=== PATIENT | female | born 1980 | race Caucasian/White ===

== ENCOUNTER 2019-10-31 13:14 | Emergency (ER) | payer SELFPAY ==
[2019-10-31 16:47] LABS: ABSOLUTE BASOPHILS # (AUTO) 0.1 10^3/uL (0.0-0.2); ABSOLUTE EOSINOPHILS # (AUTO) 0.2 10^3/uL (0.0-0.6); ABSOLUTE LYMPHOCYTES (AUTO) 2.3 10^3/uL (0.5-4.7); ABSOLUTE MONOCYTES (AUTO) 0.7 10^3/uL (0.1-1.4); ABSOLUTE NEUT (AUTO) 7.1 10^3/uL (1.7-8.2); BASOPHILS % (AUTO) 0.7 % (0-2); EOSINOPHILS % (AUTO) 1.6 % (0-6); HEMATOCRIT 40.6 % (36.0-47.0); HEMOGLOBIN 13.6 g/dL (12.0-15.5); LYMPHOCYTES % (AUTO) 22.4 % (13-45); MEAN CORPUSCULAR HEMOGLOBIN 28.6 pg (27.0-33.4); MEAN CORPUSCULAR HGB CONC 33.6 g/dL (32.0-36.0); MEAN CORPUSCULAR VOLUME 85 fl (80-97); MONOCYTES % (AUTO) 6.7 % (3-13); PLATELET COUNT 269 10^3/uL (150-450); RED BLOOD COUNT 4.77 10^6/uL (3.72-5.28); SEGMENTED NEUTROPHILS % (AUTO) 68.6 % (42-78); TOTAL CELLS COUNTED % (AUTO) 100 %; WHITE BLOOD COUNT 10.3 10^3/uL (4.0-10.5)
[2019-10-31 16:48] LABS: APPEARANCE,URINE SLIGHTLY-CLOUDY; BILIRUBIN,URINE NEGATIVE (NEGATIVE); COLOR,URINE YELLOW; GLUCOSE, URINE NEGATIVE (NEGATIVE); KETONES,URINE NEGATIVE (NEGATIVE); LEUKOCYTE ESTERASE,URINE NEGATIVE (NEGATIVE); NITRITE,URINE NEGATIVE (NEGATIVE); PROTEIN,URINE 100 mg/dL (NEGATIVE); URINE SPECIFIC GRAVITY 1.029
[2019-10-31] MEDS ORDERED: RINGERS SOLUTION,LACTATED 1,000 ML IV ONE (16:57)
[2019-10-31] MEDS ORDERED: MORPHINE SULFATE 10 MG/ML INJ IV ONE (16:58)
[2019-10-31] MEDS ORDERED: ONDANSETRON HCL INJ/PF 4 MG/2 ML SDV IV ONE (16:58)
--- NOTE | 2019-10-31 16:58 | ER Document Report ---
ED GI/ - General Chief Complaint: Diarrhea Stated Complaint: BACK/ABDOMINAL PAIN, DIARRHEA, NAUSEA Time Seen by Provider: 10/31/19 16:28 Primary Care Provider: ESCOBAR CISNEROS MD [ACTIVE STAFF] - Follow up as needed Mode of Arrival: Ambulatory Information source: Patient Notes: 39-year-old female with no previous medical problems presents to the emergency room complaining of sudden onset of right flank pain that radiated to her right abdomen yesterday afternoon while driving home. Started having diarrhea yesterday afternoon states she is had 4 loose stools since yesterday. Complains of nausea but no vomiting. States she tried taking some Tylenol and a hot bath last night without relief. Describes it as a sharp stabbing pain in her right side. Denies any bad food. No recent antibiotics. No recent travel. No COVID-19 exposure. No previous testing for COVID-19. States has been eating drinking normally since. Denies any urinary symptoms. TRAVEL OUTSIDE OF THE [place] IN LAST 30 DAYS: No - Related Data Allergies/Adverse Reactions: terbutaline [Terbutaline] Allergy (Severe, Verified 10/31/19 15:38) hallucinate,"psycho" ampicillin [Ampicillin] Allergy (Unknown, Verified 10/31/19 15:38) rash duloxetine [From Cymbalta] Allergy (Verified 10/31/19 15:38) haloperidol [From Haldol] Allergy (Verified 10/31/19 15:38) meloxicam [From Mobic] Allergy (Verified 10/31/19 15:38) Past Medical History - General Information source: Patient - Social History Smoking Status: Never Smoker Chew tobacco use (# tins/day): No Frequency of alcohol use: None Drug Abuse: None Family History: Reviewed & Not Pertinent Patient has homicidal ideation: No - Past Medical History Cardiac Medical History: Denies: Hx Coronary Artery Disease, Hx Heart Attack, Hx Hypertension Pulmonary Medical History: Reports: Hx Pneumonia - age 11 Denies: Hx Asthma, Hx Bronchitis, Hx COPD Neurological Medical History: Denies: Hx Cerebrovascular Accident, Hx Seizures Renal/ Medical History: Reports: Hx Kidney Stones GI Medical History: Musculoskeletal Medical History: Denies Hx Arthritis Infectious Medical History: Past Surgical History: Reports: Hx Abdominal Surgery, Hx Cholecystectomy, Hx Gynecologic Surgery, Hx Hysterectomy. Denies: Hx Pacemaker - Immunizations Hx Diphtheria, Pertussis, Tetanus Vaccination: Yes Review of Systems - Review of Systems Constitutional: No symptoms reported Cardiovascular: No symptoms reported Respiratory: No symptoms reported Gastrointestinal: Abdominal pain, Diarrhea, Nausea. denies: Vomiting Genitourinary: Flank pain - Right-sided Musculoskeletal: No symptoms reported Skin: No symptoms reported Neurological/Psychological: No symptoms reported -: Yes All other systems reviewed and negative Physical Exam - Vital signs Vitals: Temp Pulse Resp BP Pulse Ox 98.6 F 90 20 133/81 H 100 10/31/19 15:37 10/31/19 15:37 10/31/19 15:37 10/31/19 15:37 10/31/19 15:37 - General General appearance: Alert In distress: Mild - HEENT Head: Normocephalic, Atraumatic Eyes: Normal Pupils: PERRL - Respiratory Respiratory status: No respiratory distress Chest status: Nontender Breath sounds: Normal Chest palpation: Normal - Cardiovascular Rhythm: Regular Heart sounds: Normal auscultation Murmur: No Friction rub: No Gallop: None auscultated - Abdominal Inspection: Normal Distension: No distension Bowel sounds: Normal Tenderness: Tender - Generalized discomfort on palpation with no guarding or rebound. Organomegaly: No organomegaly - Back Back: Normal, Nontender. No: CVA tenderness - Neurological Neuro grossly intact: Yes Cognition: Normal Orientation: AAOx4 Sparks Coma Scale Eye Opening: Spontaneous Sparks Coma Scale Verbal: Oriented Sparks Coma Scale Motor: Obeys Commands Sparks Coma Scale Total: 15 Speech: Normal Motor strength normal: LUE, RUE, LLE, RLE Sensory: Normal - Skin Skin Temperature: Warm Skin Moisture: Dry Skin Color: Normal Course - Re-evaluation Re-evalutation: 10/31/19 17:30 Patient is currently resting comfortably with decreased pain. She is pain-free on exam. No diarrhea since arrival to the emergency room. All test results were reviewed with patient. Counseled on viral gastroenteritis. Discussed microscopic hematuria that needs to be followed up as outpatient. On-call physician was provided. She was counseled on a clear liquid diet for the next 24 hours. Advance diet as tolerated. Patient was given strict return to the emergency room guidelines. Return for any new or worsening symptoms. All questions were answered. Patient verbalized understanding and agrees with plan of care. 10/31/19 17:44 - Vital Signs Vital signs: Temp Pulse Resp BP Pulse Ox 98.4 F 90 20 133/81 H 100 10/31/19 15:39 10/31/19 15:37 10/31/19 15:37 10/31/19 15:37 10/31/19 15:37 - Laboratory Result Diagrams: 10/31/19 16:21 10/31/19 16:21 Laboratory results interpreted by me: 10/31/19 10/31/19 16:21 16:21 Sodium 136.1 L ALT 38 H Urine Protein 100 H Urine Blood MODERATE H Urine Urobilinogen 2.0 H - Diagnostic Test Radiology reviewed: Reports reviewed Discharge - Discharge Clinical Impression: Flank pain, Abdominal pain of unknown etiology, Microscopic hematuria Diarrhea Qualifiers: Diarrhea type: unspecified type Qualified Code(s): R19.7 - Diarrhea, unspecified Condition: Stable Disposition: HOME, SELF-CARE Instructions: Abdominal Pain ([facility]), Clear Liquid Diet ([facility]), Diarrhea, Nonspecific ([facility]), Flank Pain ([facility]) Additional Instructions: Clear liquid diet for the next 24 hours. Outpatient follow-up with a primary care physician as discussed. Return to the emergency room for any new or worsening symptoms. Referrals: ESCOBAR CISNEROS MD [ACTIVE STAFF] - Follow up as needed
[2019-10-31 17:08] LABS: ALBUMIN 4.5 g/dL (3.5-5.0); ALKALINE PHOSPHATASE 85 U/L (38-126); ANION GAP 12 (5-19); ASPARTATE AMINO TRANSFERASE 31 U/L (14-36); BILIRUBIN,TOTAL 0.6 mg/dL (0.2-1.3); BLOOD UREA NITROGEN 14 mg/dL (7-20); CALCIUM 9.3 mg/dL (8.4-10.2); CARBON DIOXIDE 23 mmol/L (22-30); CHLORIDE 101 mmol/L (98-107); GLUCOSE 101 mg/dL (75-110); POTASSIUM 3.9 mmol/L (3.6-5.0); TOTAL PROTEIN 7.8 g/dL (6.3-8.2)
--- NOTE | 2019-10-31 17:27 | RADIOLOGY REPORT (SQ) ---
EXAM DESCRIPTION: CT ABD/PELVIS NO ORAL OR IV IMAGES COMPLETED DATE/TIME: 10/31/2019 5:09 pm REASON FOR STUDY: flank pain COMPARISON: None. TECHNIQUE: CT scan of the abdomen and pelvis performed without intravenous or oral contrast. Images reviewed with lung, soft tissue, and bone windows. Reconstructed coronal and sagittal MPR images revi ewed. All images stored on PACS. All CT scanners at this facility use dose modulation, iterative reconstruction, and/or weight based d osing when appropriate to reduce radiation dose to as low as reasonably achievable (ALARA). [facility]: Dose Right [facility]: CareDose [facility]: Dose Right [facility]: Teradose 4D [facility]: [employer] RADIATION DOSE: mGy. LIMITATIONS: None. FINDINGS: LOWER CHEST: No significant findings. No nodules or infiltrates. NON-CONTRASTED LIVER, SPLEEN, ADRENALS: Evaluation limited by lack of IV contrast. No identified sign ificant masses. PANCREAS: No masses. No peripancreatic inflammatory changes. GALLBLADDER: Surgically absent. RIGHT KIDNEY AND URETER: No suspicious masses. Assessment limited by lack of IV contrast. No signif icant calcifications. No hydronephrosis or hydroureter. LEFT KIDNEY AND URETER: No suspicious masses. Assessment limited by lack of IV contrast. No signifi cant calcifications. No hydronephrosis or hydroureter. AORTA AND RETROPERITONEUM: No aneurysm. No retroperitoneal masses or adenopathy. BOWEL AND PERITONEAL CAVITY: No obvious masses or inflammatory changes. No free fluid. APPENDIX: The appendix is well seen and is normal. PELVIS, BLADDER, AND ABDOMINAL WALL:No abnormal masses. No free fluid. Bladder normal. BONES: No significant findings. OTHER: No other significant finding. IMPRESSION: NO SIGNIFICANT OR ACUTE PROCESS IN THE ABDOMEN OR PELVIS. COMMENT: Quality ID # [id number]: Final reports with documentation of one or more dose reduction techniques (e.g., Automated exposure control, adjustment of the mA and/or kV according to patient size, use of iterative reconstruction technique) TECHNICAL DOCUMENTATION: JOB ID: [id number] 2010 [employer]- All Rights Reserved Reading location - IP/workstation name: [email or web address]
[2019-10-31 18:32] VITALS: BP 118/71
== END 2019-10-31 18:32 | disposition home or self-care (01) ==
LOC: ER 13:14
DX: R10.9 Unspecified abdominal pain (principal); R10.817 Generalized abdominal tenderness; R19.7 Diarrhea, unspecified; R31.29 Other microscopic hematuria; R11.0 Nausea; Z87.442 Personal history of urinary calculi; Z90.49 Acquired absence of other specified parts of digestive tract; Z90.710 Acquired absence of both cervix and uterus; Z88.0 Allergy status to penicillin; Z88.8 Allergy status to other drugs, medicaments and biological substances
CPT/HCPCS: 99284; 96361; 96374; 96375; 36415; 83690; 85025; 80053; 81001; 74176; J2270; J2405; J7120

== ENCOUNTER 2019-11-29 14:44 | Emergency (ER) | payer SELFPAY ==
[2019-11-29] MEDS ORDERED: KETOROLAC TROMETHAMINE INJ/PF 30 MG/1 ML SDV IV ONE (14:54)
[2019-11-29] MEDS ORDERED: ONDANSETRON HCL INJ/PF 4 MG/2 ML SDV IV ONE ×2 (14:54→16:48)
[2019-11-29] MEDS ORDERED: NORMAL SALINE 1000 ML 1,000 ML IV ONE ×2 (14:55→16:51)
--- NOTE | 2019-11-29 14:58 | ER Document Report ---
ED Medical Screen (RME) - General Chief Complaint: Flank Pain Stated Complaint: RIGHT SIDE PAIN Time Seen by Provider: 11/29/19 14:50 Mode of Arrival: Ambulatory Information source: Patient Notes: 39-year-old female presented to ED for complaint of right flank pain with hematuria that started yesterday and got much worse today. She states sometimes it is intermittent but now it is constant and so bad she cannot even continue work. She has had a history of kidney stones in the past. She states she has had 4 in the past the largest one was 5 mm. She has had a dual subareolar- ductectomy for breast cancer, hysterectomy for fibroid tumors and a cholecystectomy. She states she has had no other past medical history. She states she did have a CAT scan a month ago and at that time there was not a kidney stone. Patient is alert oriented respirations regular nonlabored. She does look in a lot of discomfort. She was ordered Toradol, Zofran, IV fluids, and a renal ultrasound. I have greeted and performed a rapid initial assessment of this patient. A comprehensive ED assessment and evaluation of the patient, analysis of test results and completion of medical decision making process will be conducted by an additional ED providers. TRAVEL OUTSIDE OF THE [place] IN LAST 30 DAYS: No - Related Data Allergies/Adverse Reactions: terbutaline [Terbutaline] Allergy (Severe, Verified 11/29/19 14:49) hallucinate,"psycho" ampicillin [Ampicillin] Allergy (Unknown, Verified 11/29/19 14:49) rash duloxetine [From Cymbalta] Allergy (Verified 11/29/19 14:49) haloperidol [From Haldol] Allergy (Verified 11/29/19 14:49) meloxicam [From Mobic] Allergy (Verified 11/29/19 14:49) Home Medications: deny Past Medical History - Social History Chew tobacco use (# tins/day): No Frequency of alcohol use: None Drug Abuse: None - Past Medical History Cardiac Medical History: Denies: Hx Coronary Artery Disease, Hx Heart Attack, Hx Hypertension Pulmonary Medical History: Reports: Hx Pneumonia - age 11 Denies: Hx Asthma, Hx Bronchitis, Hx COPD Neurological Medical History: Denies: Hx Cerebrovascular Accident, Hx Seizures Renal/ Medical History: Reports: Hx Kidney Stones GI Medical History: Musculoskeltal Medical History: Denies Hx Arthritis Infectious Medical History: Past Surgical History: Reports: Hx Abdominal Surgery, Hx Cholecystectomy, Hx Gynecologic Surgery, Hx Hysterectomy. Denies: Hx Pacemaker - Immunizations Hx Diphtheria, Pertussis, Tetanus Vaccination: Yes Physical Exam - Vital signs Vitals: Temp Pulse Resp BP Pulse Ox 98.1 F 92 20 126/84 H 99 11/29/19 14:48 11/29/19 14:48 11/29/19 14:48 11/29/19 14:48 11/29/19 14:48 Course - Vital Signs Vital signs: Temp Pulse Resp BP Pulse Ox 98.1 F 92 20 126/84 H 99 11/29/19 14:48 11/29/19 14:48 11/29/19 14:48 11/29/19 14:48 11/29/19 14:48
--- NOTE | 2019-11-29 15:00 | ER Document Report ---
ED General - General Chief Complaint: Flank Pain Stated Complaint: RIGHT SIDE PAIN Time Seen by Provider: 11/29/19 14:50 Primary Care Provider: MARLYS COVINGTON MD [ACTIVE STAFF] - Follow up as needed SARA ALDRICH MD [EMERITUS] - Follow up as needed ALLEY ZARCO MD [COMMUNITY BASED STAFF] - Follow up as needed Mode of Arrival: Ambulatory TRAVEL OUTSIDE OF THE [place] IN LAST 30 DAYS: No - HPI Notes: 39-year-old female with a history of nephrolithiasis presents to the emergency room for complaints of right flank pain that started around 10:00 this morning with dysuria. Patient has not tried any pnzy-cca-[id number] medications. Worse with time, nothing makes better. Patient states that a month ago she did have flank pain with hematuria but stated she passed it. Reports she has had 4 stones in the past. Around 130 the pain became severe and she decided that she had to leave work to come to the emergency room. Reports colicky pain, 4 out of 5, sharp and stabbing pain. Denies fevers, chills, chest pain,palpitations, shortness of breath, dyspnea, nausea, vomiting, diarrhea, abdominal pain, hematuria,blurred vision, double vision, loss of vision, speech changes, LH, dizziness, syncope, headaches, wheezing, ST, URI, neck pain, weakness, bowel or bladder dysfunction, saddle anesthesia, numbness or tingling in bilateral upper or lower extremities equally, muscle paralysis, weakness in bilateral upper or lower extremities equally or rash. MEDICATIONS: I agree with the patient medications as charted by the RN. ALLERGIES: I agree with the allergies as charted by the RN. PAST MEDICAL HISTORY/PAST SURGICAL HISTORY: Reviewed and agree as charted by RN. SOCIAL HISTORY: Reviewed and agree as charted by RN. FAMILY HISTORY: No significant familial comorbid conditions directly related to patient complaint EXAM: Reviewed vital signs as charted by RN. REVIEW OF SYSTEMS:reviewed vital signs by RN CONSTITUTIONAL : Denies fever, chills, or sweats. Denies recent illness. EENT: Denies eye, ear, throat, or mouth pain or symptoms. Denies nasal or sinus congestion or discharge. Denies throat, tongue, or mouth swelling or difficulty swallowing. CARDIOVASCULAR: Denies chest pain. Denies palpitations or racing or irregular heart beat. Denies ankle edema. RESPIRATORY: Denies cough, cold, or chest congestion. Denies shortness of breath, difficulty breathing, or wheezing. GASTROINTESTINAL: Denies abdominal pain or distention. Denies nausea, vomiting, or diarrhea. Denies blood in vomitus, stools, or per rectum. Denies black, tarry stools. Denies constipation. GENITOURINARY: Reports dysuria, hematuria, urgency, frequency. denies burning with urination, discharge. FEMALE GENITOURINARY: Denies vaginal bleeding, heavy or abnormal periods, irregular periods. Denies vaginal discharge or odor. MUSCULOSKELETAL: Denies back or neck pain or stiffness. Denies joint pain or swelling. SKIN: Denies rash, lesions or sores. HEMATOLOGIC : Denies easy bruising or bleeding. LYMPHATIC: Denies swollen, enlarged glands. NEUROLOGICAL: Denies confusion or altered mental status. Denies passing out or loss of consciousness. Denies dizziness or lightheadedness. Denies headache. Denies weakness or paralysis or loss of use of either side. Denies problems with gait or speech. Denies sensory loss, numbness, or tingling. Denies seizures. PSYCHIATRIC: Denies anxiety or stress. Denies depression, suicidal ideation, or homicidal ideation. ALL OTHER SYSTEMS REVIEWED AND NEGATIVE. PHYSICAL EXAMINATION: GENERAL: Well-appearing, well-nourished and in no acute distress. HEAD: Atraumatic, normocephalic. EYES: Pupils equal round and reactive to light, extraocular movements intact, conjunctiva are normal. ENT: Nares patent, oropharynx clear without exudates. Moist mucous membranes. NECK: Normal range of motion, supple without lymphadenopathy LUNGS: Breath sounds clear to auscultation bilaterally and equal. No wheezes rales or rhonchi. HEART: Regular rate and rhythm without murmurs ABDOMEN: Soft, nontender, nondistended abdomen. No guarding, no rebound. No masses appreciated. right cva tenderness appreciated. Female : deferred Musculoskeletal: Normal range of motion, no pitting or edema. No cyanosis. NEUROLOGICAL: Cranial nerves grossly intact. Normal speech, normal gait. Normal sensory, motor exams PSYCH: Normal mood, normal affect. SKIN: Warm, Dry, normal turgor, no rashes or lesions noted. Dictation was performed using [employer] recognition software - Related Data Allergies/Adverse Reactions: terbutaline [Terbutaline] Allergy (Severe, Verified 11/29/19 14:49) hallucinate,"psycho" ampicillin [Ampicillin] Allergy (Unknown, Verified 11/29/19 14:49) rash duloxetine [From Cymbalta] Allergy (Verified 11/29/19 14:49) haloperidol [From Haldol] Allergy (Verified 11/29/19 14:49) meloxicam [From Mobic] Allergy (Verified 11/29/19 14:49) Home Medications: deny Past Medical History - General Information source: Patient - Social History Smoking Status: Never Smoker Chew tobacco use (# tins/day): No Frequency of alcohol use: None Drug Abuse: None Family History: Reviewed & Not Pertinent Patient has homicidal ideation: No - Past Medical History Cardiac Medical History: Denies: Hx Coronary Artery Disease, Hx Heart Attack, Hx Hypertension Pulmonary Medical History: Reports: Hx Pneumonia - age 11 Denies: Hx Asthma, Hx Bronchitis, Hx COPD Neurological Medical History: Denies: Hx Cerebrovascular Accident, Hx Seizures Renal/ Medical History: Reports: Hx Kidney Stones GI Medical History: Musculoskeletal Medical History: Denies Hx Arthritis Infectious Medical History: Past Surgical History: Reports: Hx Abdominal Surgery, Hx Cholecystectomy, Hx Gynecologic Surgery, Hx Hysterectomy. Denies: Hx Pacemaker - Immunizations Hx Diphtheria, Pertussis, Tetanus Vaccination: Yes Physical Exam - Vital signs Vitals: Temp Pulse Resp BP Pulse Ox 98.1 F 92 20 126/84 H 99 11/29/19 14:48 11/29/19 14:48 11/29/19 14:48 11/29/19 14:48 11/29/19 14:48 Course - Re-evaluation Re-evalutation: 11/29/19 16:54 1530-Afebrile vital stable no distress. Nurses notes reviewed. Urinalysis does show hematuria, ultrasound of kidneys negative for nephrolithiasis. Patient given 30 mg of Toradol IV and 1 L of fluids. 1645-patient still having pain, will obtain CT abdomen pelvis without contrast as well as CBC CMP. CBC negative for leukocytosis or anemia, CMP negative for hepatic or renal dysfunction, no electrolyte disturbances. Given IV hydration and morphine for her pain control. CT abdomen pelvis negative for any acute findings, did show some stranding which could be similar to pyelonephritis. I believe that the patient did pass her kidney stone. Will empirically treat her with Macrobid for 7 days, twice a day. Advised to increase oral hydration. Patient will be discharged home with a Yoel Abdalla, along with the antibiotic. Advised to follow-up with urologist as needed. Advised if any symptoms become worse such as fever, chills, any worsening flank or abdominal pain, chest pain shortness of breath return to the emergency room immediately. After performing a Medical Screening Examination, I estimate there is LOW risk for ACUTE APPENDICITIS, BOWEL OBSTRUCTION, ACUTE CHOLECYSTITIS, PERFORATED DIVERTICULITIS, INCARCERATED HERNIA, PANCREATITIS, PELVIC INFLAMMATORY DISEASE, PERFORATED ULCER, ECTOPIC , or TUBO-OVARIAN ABSCESS, thus I consider the discharge disposition reasonable. Also, there is no evidence or peritonitis, sepsis, or toxicity. I have reevaluated this patient multiple times and no significant life threatening changes are noted. The patient and I have discussed the diagnosis and risks, and we agree with discharging home with close follow-up with the understanding that symptoms and presentations can change. We also discussed returning to the Emergency Department immediately if new or worsening symptoms occur. We have discussed the symptoms which are most concerning (e.g., bloody stool, fever, changing or worsening pain, vomiting) that necessitate immediate return. 11/29/19 19:34 - Vital Signs Vital signs: Temp Pulse Resp BP Pulse Ox 98.1 F 80 18 113/92 H 100 11/29/19 14:48 11/29/19 18:48 11/29/19 18:48 11/29/19 18:48 11/29/19 18:48 - Laboratory Result Diagrams: 11/29/19 15:06 11/29/19 15:06 Laboratory results interpreted by me: 11/29/19 11/29/19 15:06 15:16 Sodium 136.3 L Urine Protein 30 H Urine Blood MODERATE H Discharge - Discharge Clinical Impression: Right flank pain Condition: Stable Disposition: HOME, SELF-CARE Instructions: Flank Pain ([facility]), Intravenous (IV) Fluids ([facility]), Oral Narcotic Medication ([facility]), Pain Medication Injection ([facility]), Toradol Injection ([facility]) Additional Instructions: Your labs were normal, you did show blood in your urine. Likely that you passed a renal calculi. Your CT scan did not show a stone, it did show a little bit of stranding this could be from your passing the stone or the beginnings of an infection, I will start you on Macrobid twice a day for 7 days. If you are having any worsening pain, please return back to the emergency room. Please ta ke Zofran as needed. You were given a [place] sixpack to go home with, do not drive, drink alcohol or operate heavy machinery as can cause sedation or impairment of cognitive function. Please follow-up with your primary care provider and urologist within the next 24 to 48 hours. Return immediately for any new or worsening symptoms. Follow up with primary care provider, call tomorrow to make followup appointment. Prescriptions: Nitrofurantoin Monohyd/M-Cryst [Macrobid 100 mg Capsule] 100 mg PO BID #14 cap Ondansetron [Zofran Odt 4 mg Tablet] 1 - 2 tab PO Q4H PRN #15 tab.rapdis PRN Reason: For Nausea/Vomiting Forms: Return to Work Referrals: SARA ALDRICH MD [EMERITUS] - Follow up as needed MARLYS COVINGTON MD [ACTIVE STAFF] - Follow up as needed ALLEY ZARCO MD [COMMUNITY BASED STAFF] - Follow up as needed
--- NOTE | 2019-11-29 15:55 | RADIOLOGY REPORT (SQ) ---
EXAM DESCRIPTION: U/S RETROPERITON (RENAL/AORTA) IMAGES COMPLETED DATE/TIME: 11/29/2019 3:42 pm REASON FOR STUDY: right kidney stone COMPARISON: CT abdomen and pelvis 10/31/2019 TECHNIQUE: Grayscale images acquired of the kidneys and bladder and recorded on PACS. Additional barb ected color Doppler images recorded. LIMITATIONS: None. FINDINGS: RIGHT KIDNEY: Measures 10.1 x 5.8 x 6.2 cm. Normal echogenicity. No hydronephrosis. No sarwat cifications. LEFT KIDNEY: Measures 10.3 x 5.6 x 5.4 cm. Normal echogenicity. No hydronephrosis. No calcifications . BLADDER: Not visualized. OTHER: Incidental note is made of increased echogenicity of the visualized liver parenchyma suggesti ve of fatty infiltration. IMPRESSION: 1. No hydronephrosis. No renal calculi identified by ultrasound. 2. Fatty infiltration of the liver. TECHNICAL DOCUMENTATION: JOB ID: [id number] 2010 [employer]- All Rights Reserved Reading location - IP/workstation name: [email or web address]
[2019-11-29 16:05] LABS: APPEARANCE,URINE SLIGHTLY-CLOUDY; BILIRUBIN,URINE NEGATIVE (NEGATIVE); COLOR,URINE YELLOW; GLUCOSE, URINE NEGATIVE (NEGATIVE); KETONES,URINE NEGATIVE (NEGATIVE); LEUKOCYTE ESTERASE,URINE NEGATIVE (NEGATIVE); NITRITE,URINE NEGATIVE (NEGATIVE); PROTEIN,URINE 30 mg/dL (NEGATIVE); URINE SPECIFIC GRAVITY 1.024; UROBILINOGEN,URINE NEGATIVE mg/dL (<2.0)
[2019-11-29] MEDS ORDERED: MORPHINE SULFATE 10 MG/ML INJ IV ONE ×2 (16:48→18:28)
[2019-11-29 17:05] LABS: ABSOLUTE BASOPHILS # (AUTO) 0.1 10^3/uL (0.0-0.2); ABSOLUTE EOSINOPHILS # (AUTO) 0.1 10^3/uL (0.0-0.6); ABSOLUTE LYMPHOCYTES (AUTO) 1.9 10^3/uL (0.5-4.7); ABSOLUTE MONOCYTES (AUTO) 0.5 10^3/uL (0.1-1.4); ABSOLUTE NEUT (AUTO) 6.8 10^3/uL (1.7-8.2); BASOPHILS % (AUTO) 0.8 % (0-2); EOSINOPHILS % (AUTO) 1.1 % (0-6); HEMATOCRIT 38.8 % (36.0-47.0); MEAN CORPUSCULAR HEMOGLOBIN 28.3 pg (27.0-33.4); MEAN CORPUSCULAR HGB CONC 33.6 g/dL (32.0-36.0); MEAN CORPUSCULAR VOLUME 84 fl (80-97); MONOCYTES % (AUTO) 5.6 % (3-13); PLATELET COUNT 252 10^3/uL (150-450); RED BLOOD COUNT 4.61 10^6/uL (3.72-5.28); RED CELL DISTRIBUTION WIDTH 13.7 % (11.5-14.0); SEGMENTED NEUTROPHILS % (AUTO) 72.5 % (42-78); TOTAL CELLS COUNTED % (AUTO) 100 %; WHITE BLOOD COUNT 9.4 10^3/uL (4.0-10.5)
[2019-11-29 17:17] LABS: ALBUMIN 4.4 g/dL (3.5-5.0); ALKALINE PHOSPHATASE 81 U/L (38-126); ANION GAP 7 (5-19); ASPARTATE AMINO TRANSFERASE 23 U/L (14-36); BILIRUBIN,DIRECT 0.3 mg/dL (0.0-0.4); BILIRUBIN,TOTAL 0.6 mg/dL (0.2-1.3); BLOOD UREA NITROGEN 13 mg/dL (7-20); CALCIUM 9.7 mg/dL (8.4-10.2); CARBON DIOXIDE 25 mmol/L (22-30); CHLORIDE 104 mmol/L (98-107); GLUCOSE 104 mg/dL (75-110); TOTAL PROTEIN 7.2 g/dL (6.3-8.2)
--- NOTE | 2019-11-29 17:54 | RADIOLOGY REPORT (SQ) ---
EXAM DESCRIPTION: CT ABD/PELVIS NO ORAL OR IV IMAGES COMPLETED DATE/TIME: 11/29/2019 5:34 pm REASON FOR STUDY: R flank pain COMPARISON: CT abdomen and pelvis 10/31/2019. Renal ultrasound 11/29/2019. TECHNIQUE: CT scan of the abdomen and pelvis performed without intravenous or oral contrast. Images reviewed with lung, soft tissue, and bone windows. Reconstructed coronal and sagittal MPR images revi ewed. All images stored on PACS. All CT scanners at this facility use dose modulation, iterative reconstruction, and/or weight based d osing when appropriate to reduce radiation dose to as low as reasonably achievable (ALARA). [facility]: Dose Right [facility]: CareDose [facility]: Dose Right [facility]: Teradose 4D [facility]: [employer] RADIATION DOSE: CT Rad equipment meets quality standard of care and radiation dose reduction techniq ues were employed. CTDIvol: 17.5 mGy. DLP: 983 mGy-cm.mGy. LIMITATIONS: None. FINDINGS: LOWER CHEST: No consolidation or pleural effusion. NON-CONTRASTED LIVER, SPLEEN, ADRENALS: Evaluation limited by lack of IV contrast. No identified sign ificant masses. PANCREAS: No peripancreatic inflammatory changes. GALLBLADDER: Surgically absent. RIGHT KIDNEY AND URETER: Assessment for masses limited by lack of IV contrast. No significant calci fications. No hydronephrosis or hydroureter. There is mild right perinephric stranding. LEFT KIDNEY AND URETER: Assessment for masses limited by lack of IV contrast. No significant calcif ications. No hydronephrosis or hydroureter. AORTA AND RETROPERITONEUM: No abdominal aortic aneurysm. No retroperitoneal masses or hemorrhage. BOWEL AND PERITONEAL CAVITY: No dilated bowel loops or inflammatory changes. No free fluid. APPENDIX: Normal. PELVIS, BLADDER, AND ABDOMINAL WALL:No pelvic mass. No free fluid. Bladder partially distended. Ther e is a small fat containing umbilical hernia. BONES: No significant findings. IMPRESSION: No hydronephrosis or obstructing ureteral calculi. Mild right perinephric stranding, no nspecific, may be seen with acute infection/inflammation such as pyelonephritis. Please correlate wi th laboratory values/ urinalysis. COMMENT: Quality ID # [id number]: Final reports with documentation of one or more dose reduction techniques (e.g., Automated exposure control, adjustment of the mA and/or kV according to patient size, use of iterative reconstruction technique) TECHNICAL DOCUMENTATION: JOB ID: [id number] 2010 [employer]- All Rights Reserved Reading location - IP/workstation name: [email or web address]
[2019-11-29] MEDS ORDERED: HYDROCODONE/ACETAMINOPHEN 5-325 MG (6 TAB/ER DISP) PO PRN (18:20)
[2019-11-29 18:48] VITALS: BP 113/92
== END 2019-11-29 18:52 | disposition home or self-care (01) ==
LOC: ER 14:44
DX: R10.9 Unspecified abdominal pain (principal); R30.0 Dysuria; Z90.49 Acquired absence of other specified parts of digestive tract; Z87.442 Personal history of urinary calculi
CPT/HCPCS: 96376; 99285; 96361; 96374; 96375; 36415; 87086; 83690; 85025; 81025; 80053; 81001; 76770; 74176; J1885; J2270; J2405; J7030

== ENCOUNTER 2020-01-17 17:02 | Emergency (ER) | payer SELFPAY ==
--- NOTE | 2020-01-17 17:11 | ER Document Report ---
ED Medical Screen (RME) - General Stated Complaint: FLANK PAIN Time Seen by Provider: 01/17/20 17:07 Information source: Patient Notes: Patient presents complaining of right flank pain that radiates around to right side of abdomen for the past 2 days. Patient reports some discomfort with voiding. Patient states that she has a history of kidney stones and suspects the same today. Patient also reports recent exposure to a coworker who tested positive for Covid and she would like to be tested today. I have greeted and performed a rapid initial assessment of this patient. A comprehensive ED assessment and evaluation of the patient, analysis of test results and completion of the medical decision making process will be conducted by additional ED providers. TRAVEL OUTSIDE OF THE [place] IN LAST 30 DAYS: No - Related Data Allergies/Adverse Reactions: terbutaline [Terbutaline] Allergy (Severe, Verified 01/17/20 17:06) hallucinate,"psycho" ampicillin [Ampicillin] Allergy (Unknown, Verified 01/17/20 17:06) rash duloxetine [From Cymbalta] Allergy (Verified 01/17/20 17:06) haloperidol [From Haldol] Allergy (Verified 01/17/20 17:06) meloxicam [From Mobic] Allergy (Verified 01/17/20 17:06) Past Medical History - Social History Chew tobacco use (# tins/day): No Frequency of alcohol use: Occasional Drug Abuse: None - Past Medical History Cardiac Medical History: Denies: Hx Coronary Artery Disease, Hx Heart Attack, Hx Hypertension Pulmonary Medical History: Reports: Hx Pneumonia - age 11 Denies: Hx Asthma, Hx Bronchitis, Hx COPD Neurological Medical History: Denies: Hx Cerebrovascular Accident, Hx Seizures Renal/ Medical History: Reports: Hx Kidney Stones GI Medical History: Musculoskeltal Medical History: Denies Hx Arthritis Infectious Medical History: Past Surgical History: Reports: Hx Abdominal Surgery, Hx Cholecystectomy, Hx Gynecologic Surgery, Hx Hysterectomy. Denies: Hx Pacemaker - Immunizations Hx Diphtheria, Pertussis, Tetanus Vaccination: Yes Physical Exam - Vital signs Vitals: Temp Pulse Resp BP Pulse Ox 98.0 F 87 16 137/68 H 98 01/17/20 17:06 01/17/20 17:06 01/17/20 17:06 01/17/20 17:06 01/17/20 17:06 - Back Back: CVA tenderness - Right Course - Vital Signs Vital signs: Temp Pulse Resp BP Pulse Ox 98.0 F 87 16 137/68 H 98 01/17/20 17:07 01/17/20 17:06 01/17/20 17:06 01/17/20 17:06 01/17/20 17:06
[2020-01-17 18:08] LABS: ABSOLUTE BASOPHILS # (AUTO) 0.1 10^3/uL (0.0-0.2); ABSOLUTE EOSINOPHILS # (AUTO) 0.1 10^3/uL (0.0-0.6); ABSOLUTE LYMPHOCYTES (AUTO) 1.6 10^3/uL (0.5-4.7); ABSOLUTE MONOCYTES (AUTO) 0.6 10^3/uL (0.1-1.4); ABSOLUTE NEUT (AUTO) 7.3 10^3/uL (1.7-8.2); BASOPHILS % (AUTO) 0.8 % (0-2); EOSINOPHILS % (AUTO) 1.4 % (0-6); HEMATOCRIT 39.9 % (36.0-47.0); HEMOGLOBIN 13.6 g/dL (12.0-15.5); MEAN CORPUSCULAR HEMOGLOBIN 28.6 pg (27.0-33.4); MEAN CORPUSCULAR HGB CONC 34.1 g/dL (32.0-36.0); MEAN CORPUSCULAR VOLUME 84 fl (80-97); MONOCYTES % (AUTO) 5.7 % (3-13); PLATELET COUNT 253 10^3/uL (150-450); RED BLOOD COUNT 4.76 10^6/uL (3.72-5.28); RED CELL DISTRIBUTION WIDTH 13.8 % (11.5-14.0); SEGMENTED NEUTROPHILS % (AUTO) 75.1 % (42-78); TOTAL CELLS COUNTED % (AUTO) 100 %; WHITE BLOOD COUNT 9.7 10^3/uL (4.0-10.5)
[2020-01-17 18:26] LABS: ALBUMIN 4.5 g/dL (3.5-5.0); ALKALINE PHOSPHATASE 72 U/L (38-126); ANION GAP 9 (5-19); ASPARTATE AMINO TRANSFERASE 26 U/L (14-36); BILIRUBIN,DIRECT 0.2 mg/dL (0.0-0.4); BILIRUBIN,TOTAL 0.6 mg/dL (0.2-1.3); BLOOD UREA NITROGEN 14 mg/dL (7-20); CALCIUM 9.7 mg/dL (8.4-10.2); CARBON DIOXIDE 27 mmol/L (22-30); CHLORIDE 102 mmol/L (98-107); GLUCOSE 104 mg/dL (75-110); POTASSIUM 4.1 mmol/L (3.6-5.0); TOTAL PROTEIN 7.3 g/dL (6.3-8.2)
[2020-01-17 18:31] LABS: APPEARANCE,URINE SLIGHTLY-CLOUDY; BILIRUBIN,URINE NEGATIVE (NEGATIVE); COLOR,URINE YELLOW; GLUCOSE, URINE NEGATIVE (NEGATIVE); KETONES,URINE NEGATIVE (NEGATIVE); LEUKOCYTE ESTERASE,URINE NEGATIVE (NEGATIVE); NITRITE,URINE NEGATIVE (NEGATIVE); PROTEIN,URINE 30 mg/dL (NEGATIVE); URINE SPECIFIC GRAVITY 1.026; UROBILINOGEN,URINE NEGATIVE mg/dL (<2.0)
--- NOTE | 2020-01-17 19:06 | ER Document Report ---
ED General - General Chief Complaint: Flank Pain Stated Complaint: FLANK PAIN Time Seen by Provider: 01/17/20 17:07 Notes: Patient is a 39-year-old white female with a history of kidney stone who presents to the emergency department chief complaint of flank pain on the right. She states it began about a day ago. Reports it was localized to the mid back. States that today the pain started radiating around the right abdomen and was associated with some nausea. She states she is not noticed any changes in urinary habits or had any urinary symptoms. No known visible blood in the urine. States that stone she has had in the past were passable. Has never had any urologic intervention. States she was told when living in [place] that it was due to calcium. She states that she slacked off of her diet recently and feels that may be why. She also adds that she was recently exposed to a coworker who was sick with respiratory symptoms and cough who tested positive for COVID-19. She states that she did work closely with her but did wear proper personal protective equipment while around the patient in question. She states over the past couple days she has felt slightly fatigued but attributed this to her suspected kidney stone. She states while she is here she would like to be tested for COVID-19. She denies any fever, chills or night sweats. No chest pain or shortness of breath. No cough. No recent travel. TRAVEL OUTSIDE OF THE [place] IN LAST 30 DAYS: No - Related Data Allergies/Adverse Reactions: terbutaline [Terbutaline] Allergy (Severe, Verified 01/17/20 17:06) hallucinate,"psycho" ampicillin [Ampicillin] Allergy (Unknown, Verified 01/17/20 17:06) rash duloxetine [From Cymbalta] Allergy (Verified 01/17/20 17:06) haloperidol [From Haldol] Allergy (Verified 01/17/20 17:06) meloxicam [From Mobic] Allergy (Verified 01/17/20 17:06) Past Medical History - General Information source: Patient - Social History Smoking Status: Never Smoker Chew tobacco use (# tins/day): No Frequency of alcohol use: Occasional Drug Abuse: None Family History: Reviewed & Not Pertinent Patient has homicidal ideation: No - Past Medical History Cardiac Medical History: Denies: Hx Coronary Artery Disease, Hx Heart Attack, Hx Hypertension Pulmonary Medical History: Reports: Hx Pneumonia - age 11 Denies: Hx Asthma, Hx Bronchitis, Hx COPD Neurological Medical History: Denies: Hx Cerebrovascular Accident, Hx Seizures Renal/ Medical History: Reports: Hx Kidney Stones GI Medical History: Musculoskeletal Medical History: Denies Hx Arthritis Infectious Medical History: Past Surgical History: Reports: Hx Abdominal Surgery, Hx Cholecystectomy, Hx Gynecologic Surgery, Hx Hysterectomy. Denies: Hx Pacemaker - Immunizations Hx Diphtheria, Pertussis, Tetanus Vaccination: Yes Review of Systems - Review of Systems Constitutional: denies: Fever EENT: denies: Nose pain Cardiovascular: denies: Syncope Respiratory: denies: Stridor Gastrointestinal: denies: Vomiting Genitourinary: Flank pain Female Genitourinary: denies: Vaginal discharge Musculoskeletal: denies: Deformity Skin: denies: Dryness Hematologic/Lymphatic: denies: Easy bleeding Neurological/Psychological: denies: Loss of power Physical Exam - Vital signs Vitals: Temp Pulse Resp BP Pulse Ox 98.0 F 87 16 137/68 H 98 01/17/20 17:06 01/17/20 17:06 01/17/20 17:06 01/17/20 17:06 01/17/20 17:06 - General General appearance: Appears well, Alert In distress: None - Respiratory Respiratory status: No respiratory distress Chest status: Nontender Breath sounds: Normal Chest palpation: Normal - Cardiovascular Rhythm: Regular Heart sounds: Normal auscultation - Abdominal Inspection: Normal Distension: No distension Bowel sounds: Normal Tenderness: Tender - Tender to palpation along the course of the right ureter Organomegaly: No organomegaly - Back Back: CVA tenderness - Right-sided - Neurological Neuro grossly intact: Yes Cognition: Normal Orientation: AAOx4 - Psychological Associated symptoms: Normal affect, Normal mood - Skin Skin Temperature: Warm Skin Moisture: Dry Skin Color: Normal Course - Re-evaluation Re-evalutation: 01/17/20 21:03 No evidence of any stone disease on CT scan per radiologist. Patient with hematuria without evidence of infection. Pain improved here status post medication administration. She is pending a COVID-19 test. She will self quarantine and isolate at home as discussed until a negative result is called to her. If a positive result is found she will be given further guidance at that time. Discussed with her the importance of outpatient follow-up and advised she return here or any ER immediately with any new, persistent or worsening symptoms. She verbalized understood and agreed. - Vital Signs Vital signs: Temp Pulse Resp BP Pulse Ox 98.0 F 87 16 137/68 H 98 01/17/20 17:07 01/17/20 17:06 01/17/20 17:06 01/17/20 17:06 01/17/20 17:06 - Laboratory Result Diagrams: 01/17/20 17:45 01/17/20 17:45 Laboratory results interpreted by me: 01/17/20 17:43 Urine Protein 30 H Urine Blood MODERATE H Discharge - Discharge Clinical Impression: Person under investigation for COVID-19, Flank pain Hematuria Qualifiers: Hematuria type: unspecified type Qualified Code(s): R31.9 - Hematuria, unspecified Condition: Stable Disposition: HOME, SELF-CARE Instructions: Oral Narcotic Medication ([facility]), COVID-19 Guidance for Persons Under Investigation Additional Instructions: You are currently considered a patient under investigation for COVID-19. Please isolate and self quarantine in your home over the next 14 days or until a negative result is found sooner and you are notified. Please follow-up with yo ur regular doctor outpatient for continued care, evaluation and management. Please return here or any ER immediately with any new, persistent or worsening symptoms. Referrals: MULU CERVANTES MD [ASSOCIATE] - Follow up as needed
[2020-01-17] MEDS ORDERED: ONDANSETRON HCL INJ/PF 4 MG/2 ML SDV IV ONE (20:04)
[2020-01-17] MEDS ORDERED: MORPHINE SULFATE 10 MG/ML INJ IV ONE (20:04)
--- NOTE | 2020-01-17 20:23 | RADIOLOGY REPORT (SQ) ---
EXAM DESCRIPTION: CT abdomen and pelvis without contrast CLINICAL HISTORY: 39 years Female, r flank pain, hematuria COMPARISON: None. TECHNIQUE: Axial images of the abdomen and pelvis were performed without the use of intravenous contrast, with sagittal and coronal reformatted images. This exam was performed according to our departmental dose-optimization program which includes use of Automated Exposure Control, adjustment of the mA and/or kV according to patient size and/or use of iterative reconstruction technique. FINDINGS: No hydronephrosis or urinary stone. Evaluation of the renal parenchyma is limited, due to the lack of intravenous contrast. There is no gross evidence of renal mass. The urinary bladder is not well distended, but is grossly unremarkable. There is fatty infiltration of the liver. There is a normal-appearing retrocecal appendix. There is no significant radiographic abnormality of the spleen, pancreas or adrenal glands. No mass or adenopathy. No free air or free fluid. IMPRESSION: Fatty liver. The cause of the patient's hematuria has not been identified.
[2020-01-17] MEDS ORDERED: ONDANSETRON ODT 4 MG TAB (6 TAB/ER DISP) PO PRN (21:04)
[2020-01-17] MEDS ORDERED: HYDROCODONE/ACETAMINOPHEN 5-325 MG (6 TAB/ER DISP) PO PRN (21:04)
[2020-01-17 21:42] VITALS: BP 135/73
== END 2020-01-17 21:35 | disposition home or self-care (01) ==
LOC: ER 17:02
DX: R10.9 Unspecified abdominal pain (principal); R31.9 Hematuria, unspecified; R11.0 Nausea; R53.83 Other fatigue; K76.0 Fatty (change of) liver, not elsewhere classified; Z87.442 Personal history of urinary calculi; Z90.49 Acquired absence of other specified parts of digestive tract; Z90.710 Acquired absence of both cervix and uterus; Z88.8 Allergy status to other drugs, medicaments and biological substances; Z88.0 Allergy status to penicillin; Z20.828 Contact with and (suspected) exposure to other viral communicable diseases
CPT/HCPCS: 99285; 96374; 96375; 36415; 85025; 87635; 80053; 81001; 74176; J2270; J2405; C9803